=== PATIENT | female | born 1945 | race Caucasian/White ===

== ENCOUNTER 2019-08-28 00:01 | Inpatient (IN) | payer OTHER ==
[~2019-08-28] VITALS: Ht 162.6 cm; Wt 88.6 kg
[~2019-08-28 00:01] MED LIST: BUTA-91 PO; PREMARIN PO; PROVERA PO
[2019-08-28] MEDS ORDERED: SODIUM CHLORIDE 0.9% 1,000 ML IV ONE (04:45)
[2019-08-28] MEDS ORDERED: MORPHINE SULF INJ 2 MG/ML SYRINGE 1ML IV ONE (04:45)
[2019-08-28] MEDS ORDERED: ONDANSETRON HCL 4 MG/2 ML VIAL IV ONE (04:45)
[2019-08-28 04:56] LABS: Basophils # (auto) 0.1 uL; Basophils % (auto) 0.6 % (0.0-2.0); Eosinophils # (auto) 0 uL; Eosinophils % (auto) 0.1 % (0.0-7.0); Hematocrit 40.5 % (36.0-46.0); Hemoglobin 13.7 g/dL (12.2-16.2); Lymphocytes % (auto) 4.7 % (10.0-50.0); Mean Corpuscular Hemoglobin 29.8 pg (28.0-32.0); Mean Corpuscular Volume 87.8 fL (80.0-100.0); Monocytes # (auto) 2.2 uL; Monocytes % (auto) 9.8 % (0.0-12.0); Neutrophils # (auto) 18.9 uL; Neutrophils % (auto) 84.8 % (37.0-80.0); Platelet Count (auto) 366 10^3/uL (140-450); Red Blood Cells 4.61 10^6/uL (4.0-5.20); Red Cell Distribution Width 13.6 % (11.8-14.3); White Blood Cell 22.3 10^3/uL (4.4-10.8)
[2019-08-28 05:29] LABS: Calcium 8.9 mg/dL (8.5-10.1); Potassium 3.5 mmol/L (3.5-5.1)
[2019-08-28 05:32] LABS: Albumin 3.2 g/dL (3.4-5.0); Amylase 28 U/L (25-115); Lipase 66 U/L (73-393)
[2019-08-28 05:36] LABS: Bilirubin, Total 0.7 mg/dL (0.2-1.0); Total Protein 7.9 g/dL (6.4-8.2)
[2019-08-28 09:16] LABS: Urine Bacteria FEW /hpf (None Seen); Urine Blood 2+ /uL (Negative); Urine Mucus FEW (None Seen); Urine Specific Gravity 1.017 (1.001-1.035); Urine WBC 238 /hpf (0 - 5); Urine WBC Clumps PRESENT /hpf (None Seen)
[2019-08-28] MEDS ORDERED: cefTRIAXone 1GM/50ML D5W 50 ML IV ONE (11:00)
[2019-08-28] MEDS ORDERED: HYDROcodone-ACET 5/325MG TAB PO PRN (11:45)
[2019-08-28] MEDS ORDERED: SODIUM CHLORIDE 0.9% 2,000 ML IV ONE (11:45)
[2019-08-28] MEDS ORDERED: NITROGLYCERIN 0.4 MG SL TAB SL PRN (11:45)
[2019-08-28] MEDS ORDERED: MORPHINE SULF INJ 2 MG/ML SYRINGE 1ML IV PRN ×2 (11:45)
[2019-08-28] MEDS: FAMOTIDINE 20 MG TAB PO SCH (11:55)
[2019-08-28] MEDS: DOCUSATE SOD 100 MG CAP PO SCH ×2 (11:55→20:37)
[2019-08-28] MEDS: SODIUM CHLORIDE 0.9% 1,000 ML IV SCH ×3 (12:35→22:19)
[2019-08-28] MEDS ORDERED: MEDR2.5T3 (13:35)
[2019-08-28] MEDS ORDERED: FLUO20CA90 (13:35)
[2019-08-28] MEDS ORDERED: OMEP-260 (13:35)
[2019-08-28] MEDS ORDERED: ESTR0.5T3 (13:35)
[2019-08-28] MEDS: ONDANSETRON HCL 4 MG/2 ML VIAL IV PRN ×2 (14:15→20:37)
[2019-08-28 22:00] VITALS: BP 138/88
[2019-08-28] MEDS: ACETAMINOPHEN 500 MG TAB PO PRN (23:29)
[2019-08-29] MEDS: ONDANSETRON HCL 4 MG/2 ML VIAL IV PRN ×3 (03:04→20:42)
[2019-08-29 05:00] VITALS: BP 151/83
[2019-08-29 05:38] LABS: Basophils # (auto) 0.1 uL; Basophils % (auto) 0.7 % (0.0-2.0); Eosinophils # (auto) 0.2 uL; Eosinophils % (auto) 1.2 % (0.0-7.0); Hematocrit 35.8 % (36.0-46.0); Lymphocytes # (auto) 1.1 uL; Lymphocytes % (auto) 6.1 % (10.0-50.0); Mean Corpuscular Hemoglobin 29.9 pg (28.0-32.0); Mean Corpuscular Hgb Conc. 33.6 g/dL (32.0-36.0); Mean Corpuscular Volume 88.9 fL (80.0-100.0); Monocytes # (auto) 2.2 uL; Monocytes % (auto) 12.8 % (0.0-12.0); Neutrophils # (auto) 13.7 uL; Neutrophils % (auto) 79.2 % (37.0-80.0); Nucleated Red Blood Cells % 0.1 %; Platelet Count (auto) 318 10^3/uL (140-450); Red Blood Cells 4.02 10^6/uL (4.0-5.20); Red Cell Distribution Width 13.5 % (11.8-14.3); White Blood Cell 17.2 10^3/uL (4.4-10.8)
[2019-08-29 06:01] LABS: BUN/Creatinine Ratio 18.3; Calcium 8.1 mg/dL (8.5-10.1); Potassium 3.7 mmol/L (3.5-5.1)
[2019-08-29] MEDS: SODIUM CHLORIDE 0.9% 1,000 ML IV SCH ×2 (08:44→17:26)
[2019-08-29] MEDS: cefTRIAXone 1GM/50ML D5W 50 ML IV SCH (08:59)
[2019-08-29 09:00] VITALS: BP 133/73
[2019-08-29] MEDS: FAMOTIDINE 20 MG TAB PO SCH (09:54)
[2019-08-29] MEDS: DOCUSATE SOD 100 MG CAP PO SCH ×2 (09:55→20:42)
[2019-08-29 13:00] VITALS: BP 135/81
[2019-08-29 17:05] VITALS: BP 151/69
[2019-08-29] MEDS: ACETAMINOPHEN 500 MG TAB PO PRN (19:49)
[2019-08-29 22:37] VITALS: BP 157/85
[2019-08-30] MEDS: SODIUM CHLORIDE 0.9% 1,000 ML IV SCH ×2 (02:04→14:38)
[2019-08-30] MEDS: DOCUSATE SOD 100 MG CAP PO SCH (03:11)
[2019-08-30] MEDS: ONDANSETRON HCL 4 MG/2 ML VIAL IV PRN ×2 (03:11→09:07)
[2019-08-30 05:00] VITALS: BP 182/97
[2019-08-30] MEDS ORDERED: hydrALAZINE HCL 20 MG/ML VL IV PRN (05:15)
[2019-08-30 07:00] VITALS: BP 162/85
[2019-08-30 07:03] LABS: Basophils # (auto) 0.1 uL; Basophils % (auto) 0.8 % (0.0-2.0); Eosinophils # (auto) 0.3 uL; Eosinophils % (auto) 2.8 % (0.0-7.0); Hematocrit 37.9 % (36.0-46.0); Hemoglobin 12.7 g/dL (12.2-16.2); Lymphocytes # (auto) 0.7 uL; Lymphocytes % (auto) 5.4 % (10.0-50.0); Mean Corpuscular Hemoglobin 29.8 pg (28.0-32.0); Mean Corpuscular Hgb Conc. 33.6 g/dL (32.0-36.0); Mean Corpuscular Volume 88.6 fL (80.0-100.0); Monocytes # (auto) 1.2 uL; Monocytes % (auto) 9.4 % (0.0-12.0); Neutrophils # (auto) 10.1 uL; Neutrophils % (auto) 81.6 % (37.0-80.0); Platelet Count (auto) 370 10^3/uL (140-450); Red Blood Cells 4.28 10^6/uL (4.0-5.20); Red Cell Distribution Width 13.3 % (11.8-14.3); White Blood Cell 12.3 10^3/uL (4.4-10.8)
[2019-08-30 07:22] LABS: BUN/Creatinine Ratio 12.1; Calcium 8.5 mg/dL (8.5-10.1)
[2019-08-30 09:00] VITALS: BP 152/78
[2019-08-30] MEDS: cefTRIAXone 1GM/50ML D5W 50 ML IV SCH (09:02)
[2019-08-30] MEDS: FAMOTIDINE 20 MG TAB PO SCH (09:08)
[2019-08-30] MEDS ORDERED: PANTOPRAZOLE 40 MG TAB PO ONE (10:45)
[2019-08-30] MEDS ORDERED: POTASSIUM EFFERVESENT TAB 25 MEQ PO ONE (10:45)
[2019-08-30] MEDS ORDERED: POTASSIUM CHLORIDE 40 MEQ, LIDOCAINE 1% (LOCAL ANESTH.) 4 ML in SODIUM CHL 0.9% 100 ML IV ONE (10:45)
[2019-08-30 13:00] VITALS: BP 147/79
[2019-08-30] MEDS ORDERED: CIPR-173 PO (16:55)
[2019-08-30 17:00] VITALS: BP 150/88
[2019-08-30 18:02] VITALS: BP 182/97
[2019-08-31] MEDS ORDERED: PANTOPRAZOLE 40 MG/10 ML VIAL INJ IV SCH (10:00)
== END 2019-08-30 19:00 | disposition home health service (06) | DRG 872 ==
LOC: ER 00:05 → OVERFLOW 00:06 → EAST 13:28
PROVIDERS: ADMIT Nurse Practitioner Acute Care; ATTEND Internal Medicine
DX: A41.51 Sepsis due to Escherichia coli [E. coli] (principal); N10 Acute pyelonephritis; M19.90 Unspecified osteoarthritis, unspecified site; E66.9 Obesity, unspecified; R91.1 Solitary pulmonary nodule; F32.9 Major depressive disorder, single episode, unspecified; K21.9 Gastro-esophageal reflux disease without esophagitis; K44.9 Diaphragmatic hernia without obstruction or gangrene; K57.90 Diverticulosis of intestine, part unspecified, without perforation or abscess without bleeding; K76.0 Fatty (change of) liver, not elsewhere classified; B96.20 Unspecified Escherichia coli [E. coli] as the cause of diseases classified elsewhere; Z96.651 Presence of right artificial knee joint; Z90.49 Acquired absence of other specified parts of digestive tract; Z79.899 Other long term (current) drug therapy; Z68.33 Body mass index [BMI] 33.0-33.9, adult
CPT/HCPCS: 36415; 71260; 74176; 80048; 80053; 81001; 82150; 83690; 84443; 85025; 87040; 87077; 87086; 87088; 87186; 93005; 96361; 96365; 96375; G0378; J0696; J2001; J2405

== ENCOUNTER 2023-01-23 06:02 | Inpatient (IN) | payer OTHER ==
[~2023-01-23] VITALS: Ht 165.1 cm; Wt 87.6 kg
[~2023-01-23 06:02] MED LIST changes: +CIPR-173 PO; +ESTR0.5T6; +FLUO20CA90; +MEDR2.5T5; +OMEP1CAP70
[2023-01-23] MEDS ORDERED: ONDANSETRON HCL 4 MG/2 ML VIAL IV ONE (07:00)
[2023-01-23] MEDS ORDERED: SODIUM CHLORIDE 0.9% 1,000 ML IV ONE ×2 (07:00)
[2023-01-23 08:07] LABS: Basophils # (auto) 0.1 10 ^3/uL (0-0.2); Basophils % (auto) 0.6 % (0.0-2.0); Eosinophils # (auto) 0 10 ^3/uL (0-0.8); Eosinophils % (auto) 0.2 % (0.0-7.0); Hematocrit 46.2 % (36.0-46.0); Hemoglobin 15.6 g/dL (12.2-16.2); Lymphocytes # (auto) 0.6 10 ^3/uL (0.4-5.4); Lymphocytes % (auto) 4.8 % (10.0-50.0); Mean Corpuscular Hemoglobin 30.7 pg (28.0-32.0); Mean Corpuscular Hgb Conc. 33.8 g/dL (32.0-36.0); Mean Corpuscular Volume 90.9 fL (80.0-100.0); Monocytes # (auto) 0.6 10 ^3/uL (0-1.3); Monocytes % (auto) 5.4 % (0.0-12.0); Neutrophils # (auto) 10.8 10 ^3/uL (1.6-8.6); Red Blood Cells 5.09 10^6/uL (4.0-5.20); Red Cell Distribution Width 12.8 % (11.8-14.3); White Blood Cell 12.1 10^3/uL (4.4-10.8)
[2023-01-23 08:25] LABS: Albumin 4.4 g/dL (3.4-5.0); Calcium 10.1 mg/dL (8.5-10.1); Potassium 4.1 mmol/L (3.5-5.1)
[2023-01-23 08:28] LABS: BUN/Creatinine Ratio 13.5 (10.0-20.0); Bilirubin, Total 0.8 mg/dL (0.2-1.0)
[2023-01-23 09:08] LABS: Urine Bacteria NONE SEEN /hpf (None Seen); Urine Blood Negative /uL (Negative); Urine Hyaline Cast FEW /lpf (0 - 2); Urine Mucus FEW (None Seen); Urine Specific Gravity 1.009 (1.001-1.035); Urine WBC 80 /hpf (0 - 5)
[2023-01-23] MEDS ORDERED: cloNIDine HCL 0.1 MG TAB PO ONE (09:15)
[2023-01-23] MEDS ORDERED: LORazepam 0.5 MG TAB PO ONE (09:15)
[2023-01-23] MEDS ORDERED: DOCUSATE SOD 100 MG CAP PO PRN (10:30)
[2023-01-23] MEDS ORDERED: DEXTROSE (50%) 50ML SYRG IV PRN (10:30)
[2023-01-23] MEDS: SODIUM CHLORIDE 0.9% 1,000 ML IV SCH ×2 (10:30→18:50)
[2023-01-23] MEDS ORDERED: MORPHINE SULFATE INJ 2 MG/ml SYRG IV PRN (10:30)
[2023-01-23] MEDS: ACCU-CHEK COMFORT CURVE STRIP VI SCH ×3 (11:12→22:00)
[2023-01-23] MEDS: InsuLIN REG 1unit/0.01ml Soln (100units/ml) SC SCH ×3 (11:17→22:00)
[2023-01-23] MEDS: cefTRIAXone 1GM/50ML D5W 50 ML IV SCH (16:43)
[2023-01-24 04:00] VITALS: PULSE 58; RESP 16; O2SAT 98
[2023-01-24] MEDS: SODIUM CHLORIDE 0.9% 1,000 ML IV SCH ×4 (04:46→22:03)
[2023-01-24] MEDS: ONDANSETRON HCL 4 MG/2 ML VIAL IV PRN (04:46)
[2023-01-24 05:19] LABS: Basophils # (auto) 0.1 10 ^3/uL (0-0.2); Basophils % (auto) 0.7 % (0.0-2.0); Eosinophils # (auto) 0.1 10 ^3/uL (0-0.8); Eosinophils % (auto) 0.8 % (0.0-7.0); Hemoglobin 13.9 g/dL (12.2-16.2); Lymphocytes # (auto) 0.6 10 ^3/uL (0.4-5.4); Lymphocytes % (auto) 3.2 % (10.0-50.0); Mean Corpuscular Hemoglobin 30.9 pg (28.0-32.0); Mean Corpuscular Hgb Conc. 33.9 g/dL (32.0-36.0); Mean Corpuscular Volume 91.2 fL (80.0-100.0); Monocytes # (auto) 1.4 10 ^3/uL (0-1.3); Monocytes % (auto) 8.1 % (0.0-12.0); Neutrophils # (auto) 14.9 10 ^3/uL (1.6-8.6); Neutrophils % (auto) 87.2 % (37.0-80.0); Red Cell Distribution Width 13.2 % (11.8-14.3); White Blood Cell 17.1 10^3/uL (4.4-10.8)
[2023-01-24 05:20] LABS: Albumin 3.8 g/dL (3.4-5.0); Calcium 8.4 mg/dL (8.5-10.1); Potassium 3.7 mmol/L (3.5-5.1)
[2023-01-24 05:24] LABS: BUN/Creatinine Ratio 18.6 (10.0-20.0); Bilirubin, Total 0.7 mg/dL (0.2-1.0); Total Protein 7.1 g/dL (6.4-8.2)
[2023-01-24] MEDS: ACCU-CHEK COMFORT CURVE STRIP VI SCH ×4 (06:49→22:02)
[2023-01-24] MEDS: InsuLIN REG 1unit/0.01ml Soln (100units/ml) SC SCH ×4 (06:49→22:01)
[2023-01-24] MEDS: cefTRIAXone 1GM/50ML D5W 50 ML IV SCH (09:42)
[2023-01-24] MEDS: medroxyPROGESTERone ACETATE 5 MG TAB PO SCH (10:00)
[2023-01-24] MEDS: ESTRADIOL 1 MG TAB PO SCH (10:00)
[2023-01-24] MEDS: FLUoxetine HCL 20 MG CAP PO SCH (10:37)
[2023-01-24 11:27] VITALS: BP 145/97; PULSE 102; RESP 18; TEMP 98.3; O2SAT 95
[2023-01-24] MEDS ORDERED: LOSA100T58 PO (11:45)
[2023-01-24] MEDS ORDERED: LISINOPRIL 20 MG TAB PO SCH (11:45)
[2023-01-24] MEDS ORDERED: LISI20TA56 PO (11:45)
[2023-01-24] MEDS: PANTOPRAZOLE 40 MG/10 ML VIAL INJ IV SCH (12:11)
[2023-01-24] MEDS ORDERED: LOSARTAN POTASSIUM 50 MG TAB PO SCH (12:11)
[2023-01-24] MEDS: metroNIDAZOLE 500MG/100ML 100 ML IV SCH ×2 (12:21→21:56)
[2023-01-24 13:00] VITALS: BP 145/97; PULSE 102; RESP 18; TEMP 98.3; O2SAT 95
[2023-01-24] MEDS: levoFLOXacin 500MG 100 ML IV SCH (14:33)
[2023-01-24] MEDS: LOSARTAN POTASSIUM 50 MG TAB PO SCH (16:04)
[2023-01-24] MEDS ORDERED: IOHEXOL 300 MG/ML 100ML BOTTLE IJ ONE (16:44)
[2023-01-24 17:00] VITALS: BP 141/63; PULSE 86; RESP 20; TEMP 98.1; O2SAT 96
[2023-01-24 22:00] VITALS: BP 148/74; PULSE 89; RESP 18; TEMP 97.1; O2SAT 94
[2023-01-25] MEDS: hydrALAZINE HCL 20 MG/ML VL IV PRN ×2 (04:08→17:47)
[2023-01-25] MEDS: ONDANSETRON HCL 4 MG/2 ML VIAL IV PRN ×2 (04:08→08:37)
[2023-01-25] MEDS: SODIUM CHLORIDE 0.9% 1,000 ML IV SCH ×4 (04:35→23:08)
[2023-01-25 05:00] VITALS: BP 182/99; PULSE 99; RESP 18; TEMP 98.3; O2SAT 97
[2023-01-25] MEDS: ACCU-CHEK COMFORT CURVE STRIP VI SCH ×4 (06:08→22:31)
[2023-01-25] MEDS: metroNIDAZOLE 500MG/100ML 100 ML IV SCH ×3 (06:08→22:31)
[2023-01-25] MEDS: InsuLIN REG 1unit/0.01ml Soln (100units/ml) SC SCH ×4 (06:09→22:00)
[2023-01-25 08:00] VITALS: BP 127/85; PULSE 109; RESP 18; TEMP 97.9; O2SAT 97
[2023-01-25] MEDS: medroxyPROGESTERone ACETATE 5 MG TAB PO SCH (10:00)
[2023-01-25] MEDS: ESTRADIOL 1 MG TAB PO SCH (10:00)
[2023-01-25] MEDS: LOSARTAN POTASSIUM 50 MG TAB PO SCH (11:14)
[2023-01-25] MEDS: levoFLOXacin 500MG 100 ML IV SCH (11:16)
[2023-01-25] MEDS: PANTOPRAZOLE 40 MG/10 ML VIAL INJ IV SCH (11:16)
[2023-01-25] MEDS: FLUoxetine HCL 20 MG CAP PO SCH (11:17)
[2023-01-25 13:00] VITALS: BP 152/84; PULSE 99; RESP 18; TEMP 98.3; O2SAT 95
[2023-01-25 15:00] VITALS: BP 159/88; PULSE 93; RESP 18; TEMP 97.9; O2SAT 95
[2023-01-25 16:19] LABS: Basophils # (auto) 0.1 10 ^3/uL (0-0.2); Basophils % (auto) 0.7 % (0.0-2.0); Eosinophils # (auto) 0.1 10 ^3/uL (0-0.8); Eosinophils % (auto) 0.8 % (0.0-7.0); Hematocrit 40.1 % (36.0-46.0); Hemoglobin 13.6 g/dL (12.2-16.2); Lymphocytes # (auto) 0.9 10 ^3/uL (0.4-5.4); Lymphocytes % (auto) 7.9 % (10.0-50.0); Mean Corpuscular Hemoglobin 31.1 pg (28.0-32.0); Mean Corpuscular Volume 91.3 fL (80.0-100.0); Monocytes # (auto) 1.2 10 ^3/uL (0-1.3); Monocytes % (auto) 10.6 % (0.0-12.0); Neutrophils # (auto) 8.8 10 ^3/uL (1.6-8.6); Nucleated Red Blood Cells % 0.2 %; Red Blood Cells 4.39 10^6/uL (4.0-5.20); Red Cell Distribution Width 13.3 % (11.8-14.3); White Blood Cell 10.9 10^3/uL (4.4-10.8)
[2023-01-25 16:39] LABS: BUN/Creatinine Ratio 10.2 (10.0-20.0); Calcium 8.8 mg/dL (8.5-10.1)
[2023-01-25 16:41] LABS: Potassium 2.9 mmol/L (3.5-5.1)
[2023-01-25 22:00] VITALS: BP 140/84; PULSE 105; RESP 16; TEMP 98; O2SAT 97
[2023-01-25] MEDS: TEMAZEPAM 15 MG CAP PO PRN (23:12)
[2023-01-26] VITALS (7 sets, daily range): BP systolic 146–175; BP diastolic 73–81; PULSE 68–94; RESP 17–18; TEMP 36.8; O2SAT 94–99
[2023-01-26] MEDS: SODIUM CHLORIDE 0.9% 1,000 ML IV SCH ×3 (06:21→21:50)
[2023-01-26] MEDS: metroNIDAZOLE 500MG/100ML 100 ML IV SCH ×2 (06:21→14:22)
[2023-01-26] MEDS: ACCU-CHEK COMFORT CURVE STRIP VI SCH ×4 (06:25→22:00)
[2023-01-26] MEDS: InsuLIN REG 1unit/0.01ml Soln (100units/ml) SC SCH ×4 (06:27→22:00)
[2023-01-26] MEDS: LOSARTAN POTASSIUM 50 MG TAB PO SCH (08:52)
[2023-01-26] MEDS: medroxyPROGESTERone ACETATE 5 MG TAB PO SCH (08:53)
[2023-01-26] MEDS: FLUoxetine HCL 20 MG CAP PO SCH (08:53)
[2023-01-26] MEDS: ESTRADIOL 1 MG TAB PO SCH (08:53)
[2023-01-26] MEDS: PANTOPRAZOLE 40 MG/10 ML VIAL INJ IV SCH (08:53)
[2023-01-26] MEDS: levoFLOXacin 500MG 100 ML IV SCH (08:53)
[2023-01-26] MEDS ORDERED: POTASSIUM CHL 20 Meq TABLET PO ONE (11:30)
[2023-01-26] MEDS ORDERED: POTASSIUM CHL 20MEQ/100ML 100 ML IV SCH ×2 (11:30→17:00)
[2023-01-26] MEDS ORDERED: CIPR-173 PO (16:13)
[2023-01-26] MEDS ORDERED: AMLO1TAB22 PO (16:13)
[2023-01-26] MEDS ORDERED: amLODIPine BESYLATE 5 MG TAB PO SCH (16:15)
[2023-01-26] MEDS: TEMAZEPAM 15 MG CAP PO PRN (23:12)
[2023-01-27] MEDS: hydrALAZINE HCL 20 MG/ML VL IV PRN (02:37)
[2023-01-27 04:51] VITALS: BP 164/73; PULSE 89; RESP 17; TEMP 98.3; O2SAT 96
[2023-01-27] MEDS: InsuLIN REG 1unit/0.01ml Soln (100units/ml) SC SCH (06:00)
[2023-01-27] MEDS: SODIUM CHLORIDE 0.9% 1,000 ML IV SCH ×3 (06:25→07:32)
[2023-01-27] MEDS: ACCU-CHEK COMFORT CURVE STRIP VI SCH (06:25)
[2023-01-27] MEDS: metroNIDAZOLE 500MG/100ML 100 ML IV SCH ×2 (06:35)
[2023-01-27 06:57] VITALS: BP 125/89; PULSE 88; RESP 17; TEMP 98.5; O2SAT 98
[2023-01-27 08:00] VITALS: BP 145/79; PULSE 82; RESP 18; TEMP 97.9; O2SAT 98
[2023-01-27] MEDS ORDERED: PANTOPRAZOLE 40 MG TAB PO SCH (10:00)
== END 2023-01-27 08:45 | disposition home or self-care (01) | DRG 436 ==
LOC: ER 06:02 → OVERFLOW 10:32 → WEST WING 01-24 11:07
PROVIDERS: ADMIT Internal Medicine; ATTEND Internal Medicine
DX: C25.0 Malignant neoplasm of head of pancreas (principal); E87.1 Hypo-osmolality and hyponatremia; N39.0 Urinary tract infection, site not specified; E86.0 Dehydration; K86.9 Disease of pancreas, unspecified; K21.9 Gastro-esophageal reflux disease without esophagitis; I11.9 Hypertensive heart disease without heart failure; F32.A Depression, unspecified; Z79.899 Other long term (current) drug therapy; Z87.891 Personal history of nicotine dependence
CPT/HCPCS: 36415; 70450; 71045; 71260; 74176; 74177; 80048; 80053; 81001; 82378; 82962; 83036; 83690; 84132; 84484; 85025; 86301; 87040; 87086; 87088; 87186; 96361; 96374; C9113; G0378; J0696; J1815; J1956; J2405; J3480; J3490

== ENCOUNTER 2023-02-28 20:45 | Inpatient (IN) | payer OTHER ==
[~2023-02-28] VITALS: Ht 165.1 cm; Wt 74.0 kg
[~2023-02-28 20:45] MED LIST changes: +AMLO1TAB22 PO; +LOSA100T58 PO
[2023-02-28 22:51] LABS: Basophils # (auto) 0.1 10 ^3/uL (0-0.2); Basophils % (auto) 0.6 % (0.0-2.0); Eosinophils # (auto) 0 10 ^3/uL (0-0.8); Eosinophils % (auto) 0.1 % (0.0-7.0); Hematocrit 43.4 % (36.0-46.0); Lymphocytes # (auto) 0.4 10 ^3/uL (0.4-5.4); Lymphocytes % (auto) 2.5 % (10.0-50.0); Mean Corpuscular Hemoglobin 31.2 pg (28.0-32.0); Mean Corpuscular Hgb Conc. 34.6 g/dL (32.0-36.0); Mean Corpuscular Volume 90.2 fL (80.0-100.0); Monocytes # (auto) 1.2 10 ^3/uL (0-1.3); Monocytes % (auto) 6.9 % (0.0-12.0); Neutrophils # (auto) 15.3 10 ^3/uL (1.6-8.6); Neutrophils % (auto) 89.9 % (37.0-80.0); Red Blood Cells 4.81 10^6/uL (4.0-5.20); White Blood Cell 17.1 10^3/uL (4.4-10.8)
[2023-02-28 22:52] LABS: Chloride 95 mmol/L (98-107); Potassium 3.4 mmol/L (3.5-5.1); Sodium 130 mmol/L (136-145)
[2023-02-28 22:53] LABS: Anion Gap 11.4 (5-15); Carbon Dioxide 23.6 mmol/L (20-30)
[2023-02-28 22:54] LABS: Calcium 9.6 mg/dL (8.7-10.4)
[2023-02-28 22:58] LABS: BUN/Creatinine Ratio 10.9 (10.0-20.0); Blood Urea Nitrogen 7 mg/dL (9-23); Glucose 168 mg/dL (74-106)
[2023-03-01] MEDS ORDERED: PIPERACILLIN-TAZOB 3.375GM 100 ML IV ONE (00:15)
[2023-03-01] MEDS ORDERED: ONDANSETRON HCL 4 MG/2 ML VIAL IV ONE ×2 (00:15→05:30)
[2023-03-01] MEDS ORDERED: LACTATED RINGER'S 2,200 ML IV ONE (00:15)
[2023-03-01] MEDS ORDERED: metroNIDAZOLE 500MG/100ML 100 ML IV ONE (00:15)
[2023-03-01] MEDS ORDERED: HYDROmorphone HCL 2 MG/ML VL/or syr IV ONE (00:15)
[2023-03-01] MEDS ORDERED: IOHEXOL 300 MG/ML 100ML BOTTLE IJ ONE (00:38)
[2023-03-01 03:30] VITALS: PULSE 98; RESP 18; O2SAT 94
[2023-03-01 03:36] LABS: Urine Bacteria NONE SEEN /hpf (None Seen); Urine Blood Negative /uL (Negative); Urine Clarity Clear (Clear); Urine Color Straw (Yellow); Urine Protein, UAD Negative (Negative); Urine Specific Gravity 1.042 (1.001-1.035); Urine Urobilinogen Normal (Negative); Urine WBC 1 /hpf (0 - 5)
[2023-03-01 04:41] LABS: Alanine Aminotransferase 12 U/L (7-40); Albumin 4.3 g/dL (3.2-4.8); Alkaline Phosphatase 102 U/L (46-116); Anion Gap 7.6 (5-15); Aspartate Aminotransferase 9 U/L (13-40); BUN/Creatinine Ratio 11.1 (10.0-20.0); Bilirubin, Total 0.6 mg/dL (0.2-1.0); Blood Urea Nitrogen 6 mg/dL (9-23); Calcium 9.1 mg/dL (8.7-10.4); Carbon Dioxide 25.4 mmol/L (20-30); Chloride 98 mmol/L (98-107); Glucose 142 mg/dL (74-106); Potassium 3.5 mmol/L (3.5-5.1); Sodium 131 mmol/L (136-145); Total Protein 6.9 g/dL (5.7-8.2)
[2023-03-01] MEDS ORDERED: NITROGLYCERIN 0.4 MG SL TAB SL PRN (06:15)
[2023-03-01] MEDS ORDERED: hydrALAZINE HCL 20 MG/ML VL IV PRN (06:15)
[2023-03-01] MEDS ORDERED: SODIUM CHLORIDE 0.9% 1,000 ML IV SCH (06:15)
[2023-03-01] MEDS ORDERED: ONDANSETRON HCL 4 MG/2 ML VIAL IV PRN (06:15)
[2023-03-01] MEDS ORDERED: MORPHINE SULFATE INJ 2 MG/ml SYRG IV PRN ×2 (06:15)
[2023-03-01] MEDS ORDERED: ACETAMINOPHEN 325 MG TAB PO PRN (06:15)
[2023-03-01] MEDS ORDERED: DOCUSATE SOD 100 MG CAP PO PRN (06:15)
[2023-03-01] MEDS ORDERED: HYDROcodone-ACET 5/325MG TAB PO PRN (06:15)
[2023-03-01] MEDS ORDERED: cefTRIAXone 1GM/50ML D5W 50 ML IV SCH (07:00)
[2023-03-01] MEDS ORDERED: POTASSIUM CHL 20 Meq TABLET PO ONE (07:00)
[2023-03-01 07:20] VITALS: PULSE 93; RESP 15; O2SAT 95
[2023-03-01 07:29] LABS: Basophils # (auto) 0.1 10 ^3/uL (0-0.2); Basophils % (auto) 0.5 % (0.0-2.0); Eosinophils # (auto) 0.1 10 ^3/uL (0-0.8); Eosinophils % (auto) 0.7 % (0.0-7.0); Hematocrit 40.7 % (36.0-46.0); Hemoglobin 13.9 g/dL (12.2-16.2); Lymphocytes # (auto) 0.8 10 ^3/uL (0.4-5.4); Mean Corpuscular Hgb Conc. 34.2 g/dL (32.0-36.0); Mean Corpuscular Volume 90.6 fL (80.0-100.0); Monocytes # (auto) 1.5 10 ^3/uL (0-1.3); Monocytes % (auto) 10.8 % (0.0-12.0); Neutrophils # (auto) 11.6 10 ^3/uL (1.6-8.6); Red Blood Cells 4.49 10^6/uL (4.0-5.20); Red Cell Distribution Width 13.1 % (11.8-14.3); White Blood Cell 14.2 10^3/uL (4.4-10.8)
[2023-03-01 08:00] LABS: Alanine Aminotransferase 13 U/L (7-40); Alkaline Phosphatase 97 U/L (46-116); Anion Gap 8.3 (5-15); Aspartate Aminotransferase 10 U/L (13-40); BUN/Creatinine Ratio 9.7 (10.0-20.0); Blood Urea Nitrogen 6 mg/dL (9-23); Calcium 9.1 mg/dL (8.5-10.1); Carbon Dioxide 26.7 mmol/L (20-30); Chloride 99 mmol/L (98-107); Glucose 165 mg/dL (74-106); Potassium 3.8 mmol/L (3.5-5.1); Sodium 134 mmol/L (136-145)
[2023-03-01] MEDS ORDERED: metroNIDAZOLE 500MG/100ML 100 ML IV SCH (08:00)
[2023-03-01 08:01] LABS: Albumin 4.2 g/dL (3.2-4.8); Bilirubin, Total 0.6 mg/dL (0.2-1.0); Total Protein 6.7 g/dL (5.7-8.2)
[2023-03-01] MEDS ORDERED: FAMOTIDINE (10MG/ML) 2ML VL IV SCH (10:00)
[2023-03-01] MEDS ORDERED: PANTOPRAZOLE 40 MG/10 ML VIAL INJ IV SCH (10:15)
[2023-03-01 11:20] VITALS: BP 138/83; PULSE 91; RESP 16; TEMP 97.6; O2SAT 95
== END 2023-03-01 15:53 | disposition home or self-care (01) | DRG 436 ==
LOC: ER 20:45 → OVERFLOW 03-01 06:16
PROVIDERS: ADMIT Nurse Practitioner Family; ATTEND Nurse Practitioner Family
DX: C25.9 Malignant neoplasm of pancreas, unspecified (principal); C78.7 Secondary malignant neoplasm of liver and intrahepatic bile duct; E87.1 Hypo-osmolality and hyponatremia; K52.9 Noninfective gastroenteritis and colitis, unspecified; E86.0 Dehydration; E87.6 Hypokalemia; I10 Essential (primary) hypertension; R73.9 Hyperglycemia, unspecified; K21.9 Gastro-esophageal reflux disease without esophagitis; F32.9 Major depressive disorder, single episode, unspecified; F41.9 Anxiety disorder, unspecified; Z90.49 Acquired absence of other specified parts of digestive tract; N13.9 Obstructive and reflux uropathy, unspecified
CPT/HCPCS: 36415; 74177; 76705; 80048; 80053; 81001; 83605; 85025; 87040; C9113; G0378; J0696; J2405; J2543; J3490

== ENCOUNTER 2023-06-13 19:44 | Inpatient (IN) | payer OTHER ==
[~2023-06-13] VITALS: Ht 165.1 cm; Wt 79.6 kg
[~2023-06-13 19:44] MED LIST changes: -CIPR-173 PO
[2023-06-13 20:35] LABS: Basophils # (auto) 0.2 10 ^3/uL (0-0.2); Eosinophils # (auto) 0.3 10 ^3/uL (0-0.8); Eosinophils % (auto) 1.7 % (0.0-7.0); Hematocrit 40.7 % (36.0-46.0); Hemoglobin 13.9 g/dL (12.2-16.2); Lymphocytes % (auto) 6.2 % (10.0-50.0); Mean Corpuscular Hemoglobin 31.1 pg (28.0-32.0); Mean Corpuscular Hgb Conc. 34.3 g/dL (32.0-36.0); Mean Corpuscular Volume 90.8 fL (80.0-100.0); Monocytes % (auto) 6.4 % (0.0-12.0); Neutrophils # (auto) 13.7 10 ^3/uL (1.6-8.6); Neutrophils % (auto) 84.7 % (37.0-80.0); Red Blood Cells 4.48 10^6/uL (4.0-5.20); Red Cell Distribution Width 13.3 % (11.8-14.3); White Blood Cell 16.1 10^3/uL (4.4-10.8)
[2023-06-13 20:51] LABS: INR 1.13 (0.9-1.15); Partial Thromboplastin Time 24.9 SEC (24.5-34.5); Prothrombin Time 11.8 sec (9.3-11.8)
[2023-06-13 20:55] LABS: Alanine Aminotransferase 21 U/L (7-40); Albumin 4.5 g/dL (3.2-4.8); Alkaline Phosphatase 139 U/L (46-116); Anion Gap 12 (5-15); Aspartate Aminotransferase 18 U/L (13-40); BUN/Creatinine Ratio 15.8 (10.0-20.0); Bilirubin, Total 0.6 mg/dL (0.2-1.0); Blood Urea Nitrogen 12 mg/dL (9-23); Calcium 9.3 mg/dL (8.5-10.1); Carbon Dioxide 20 mmol/L (20-30); Chloride 102 mmol/L (98-107); Potassium 3.8 mmol/L (3.5-5.1); Sodium 134 mmol/L (136-145); Total Protein 6.9 g/dL (5.7-8.2)
[2023-06-13 21:05] LABS: Glucose 404 mg/dL (74-106)
[2023-06-13] MEDS ORDERED: LORazepam 2MG/ML-1ML VIAL IV ONE (21:45)
[2023-06-13] MEDS ORDERED: PANTOPRAZOLE 40mg/50ML NS AE 50 ML IV ONE (21:45)
[2023-06-13] MEDS ORDERED: SODIUM CHLORIDE 0.9% 2,000 ML IV ONE (21:45)
[2023-06-13] MEDS ORDERED: PANTOPRAZOLE 80 MG in SODIUM CHL 0.9% 100 ML IV ONE (21:45)
[2023-06-13] MEDS ORDERED: ONDANSETRON HCL 4 MG/2 ML VIAL IV ONE (21:45)
[2023-06-13 22:20] VITALS: RESP 18; O2SAT 98
[2023-06-13] MEDS ORDERED: PANTOPRAZOLE 40 MG/10 ML VIAL INJ IV ONE (22:26)
[2023-06-13 22:39] LABS: Magnesium 1.7 mg/dL (1.6-2.6)
[2023-06-14] MEDS ORDERED: IOHEXOL 300 MG/ML 100ML BOTTLE IJ ONE (01:19)
[2023-06-14] MEDS ORDERED: ONDANSETRON HCL 4 MG/2 ML VIAL IV ONE (02:30)
[2023-06-14 03:28] LABS: Urine Bacteria FEW /hpf (None Seen); Urine Blood 1+ /uL (Negative); Urine Clarity Clear (Clear); Urine Color Colorless (Yellow); Urine Protein, UAD Negative (Negative); Urine Specific Gravity 1.044 (1.001-1.035); Urine Urobilinogen Normal (Negative); Urine WBC 1 /hpf (0 - 5); Urine pH 6.5 (5.0-8.0)
[2023-06-14] MEDS ORDERED: METOCLOPRAMIDE HCL 5MG/ml INJ 2ml VIAL IV ONE (04:15)
[2023-06-14] MEDS ORDERED: LORazepam 2MG/ML-1ML VIAL IV ONE (04:15)
[2023-06-14] MEDS ORDERED: LORazepam 0.5 MG TAB PO ONE (04:45)
[2023-06-14 07:20] VITALS: PULSE 112; RESP 21; O2SAT 95
[2023-06-14] MEDS ORDERED: ZOFR4T PO (10:45)
[2023-06-14] MEDS ORDERED: OMEP-434 PO ×2 (10:45)
[2023-06-14 15:24] LABS: Basophils # (auto) 0.1 10 ^3/uL (0-0.2); Basophils % (auto) 0.6 % (0.0-2.0); Eosinophils # (auto) 0.2 10 ^3/uL (0-0.8); Eosinophils % (auto) 1.4 % (0.0-7.0); Hematocrit 33.4 % (36.0-46.0); Hemoglobin 11.3 g/dL (12.2-16.2); Lymphocytes # (auto) 0.9 10 ^3/uL (0.4-5.4); Lymphocytes % (auto) 6.8 % (10.0-50.0); Mean Corpuscular Hemoglobin 30.5 pg (28.0-32.0); Mean Corpuscular Hgb Conc. 33.8 g/dL (32.0-36.0); Mean Corpuscular Volume 90.2 fL (80.0-100.0); Monocytes # (auto) 0.9 10 ^3/uL (0-1.3); Monocytes % (auto) 7.1 % (0.0-12.0); Neutrophils # (auto) 11.1 10 ^3/uL (1.6-8.6); Neutrophils % (auto) 84.1 % (37.0-80.0); Red Blood Cells 3.71 10^6/uL (4.0-5.20); Red Cell Distribution Width 12.9 % (11.8-14.3); White Blood Cell 13.2 10^3/uL (4.4-10.8)
[2023-06-14 15:38] LABS: Chloride 106 mmol/L (98-107); Potassium 3.7 mmol/L (3.5-5.1); Sodium 137 mmol/L (136-145)
[2023-06-14 15:40] LABS: Anion Gap 7 (5-15); Calcium 8.6 mg/dL (8.7-10.4); Carbon Dioxide 24 mmol/L (20-30)
[2023-06-14 15:45] LABS: BUN/Creatinine Ratio 20.6 (10.0-20.0); Blood Urea Nitrogen 14 mg/dL (9-23); Glucose 314 mg/dL (74-106)
[2023-06-14] MEDS ORDERED: DEXTROSE (50%) 50ML SYRG IV PRN (16:15)
[2023-06-14] MEDS ORDERED: ONDANSETRON HCL 4 MG/2 ML VIAL IV PRN (16:15)
[2023-06-14] MEDS ORDERED: PANTOPRAZOLE 40mg/50ML NS AE 50 ML IV ONE (16:15)
[2023-06-14] MEDS ORDERED: ACETAMINOPHEN 325 MG TAB PO PRN (16:15)
[2023-06-14] MEDS ORDERED: PANTOPRAZOLE 80 MG in SODIUM CHL 0.9% 100 ML IV ONE (16:15)
[2023-06-14] MEDS: SODIUM CHLORIDE 0.9% 1,000 ML IV SCH (17:09)
[2023-06-14] MEDS: InsuLIN REG 1unit/0.01ml Soln (100units/ml) SC SCH ×2 (17:23→22:32)
[2023-06-14] MEDS: ACCU-CHEK COMFORT CURVE STRIP VI SCH ×2 (17:24→22:30)
[2023-06-14 18:40] LABS: Basophils # (auto) 0.1 10 ^3/uL (0-0.2); Basophils % (auto) 0.6 % (0.0-2.0); Eosinophils # (auto) 0.3 10 ^3/uL (0-0.8); Eosinophils % (auto) 2.4 % (0.0-7.0); Hematocrit 33.6 % (36.0-46.0); Hemoglobin 11.3 g/dL (12.2-16.2); Lymphocytes # (auto) 1.1 10 ^3/uL (0.4-5.4); Lymphocytes % (auto) 8.4 % (10.0-50.0); Mean Corpuscular Hemoglobin 30.8 pg (28.0-32.0); Mean Corpuscular Hgb Conc. 33.7 g/dL (32.0-36.0); Mean Corpuscular Volume 91.6 fL (80.0-100.0); Monocytes % (auto) 7.7 % (0.0-12.0); Neutrophils # (auto) 10.4 10 ^3/uL (1.6-8.6); Neutrophils % (auto) 80.9 % (37.0-80.0); Red Blood Cells 3.66 10^6/uL (4.0-5.20); White Blood Cell 12.8 10^3/uL (4.4-10.8)
[2023-06-14 19:30] VITALS: PULSE 109; RESP 20; O2SAT 96
[2023-06-14 23:11] VITALS: BP 129/70; PULSE 94; RESP 18; TEMP 98.6; O2SAT 96
[2023-06-14 23:29] VITALS: BP 129/70; PULSE 98; RESP 16; TEMP 98.6; O2SAT 96
[2023-06-15] VITALS (9 sets, daily range): BP systolic 119–132; BP diastolic 66–80; PULSE 68–110; RESP 14–18; TEMP 97.6–98.5; O2SAT 93–99
[2023-06-15] MEDS: SODIUM CHLORIDE 0.9% 1,000 ML IV SCH ×2 (05:27→18:55)
[2023-06-15] MEDS: ACCU-CHEK COMFORT CURVE STRIP VI SCH ×4 (05:55→22:00)
[2023-06-15] MEDS: InsuLIN REG 1unit/0.01ml Soln (100units/ml) SC SCH ×4 (05:55→21:39)
[2023-06-15 06:56] LABS: Basophils # (auto) 0.1 10 ^3/uL (0-0.2); Eosinophils # (auto) 0.6 10 ^3/uL (0-0.8); Eosinophils % (auto) 5.5 % (0.0-7.0); Hematocrit 30.7 % (36.0-46.0); Hemoglobin 10.6 g/dL (12.2-16.2); Lymphocytes # (auto) 1.3 10 ^3/uL (0.4-5.4); Lymphocytes % (auto) 12.6 % (10.0-50.0); Mean Corpuscular Hemoglobin 31.3 pg (28.0-32.0); Mean Corpuscular Hgb Conc. 34.4 g/dL (32.0-36.0); Monocytes % (auto) 9.9 % (0.0-12.0); Neutrophils # (auto) 7.4 10 ^3/uL (1.6-8.6); Red Blood Cells 3.37 10^6/uL (4.0-5.20); Red Cell Distribution Width 13.1 % (11.8-14.3); White Blood Cell 10.5 10^3/uL (4.4-10.8)
[2023-06-15] MEDS ORDERED: PROPOFOL 10 MG/ML 20 ML IV ONE ×2 (11:01→11:14)
[2023-06-15] MEDS ORDERED: LIDOCAINE 2% (LOCAL ANESTH.) PF 5ml SDV ONE (11:01)
[2023-06-15] MEDS: PANTOPRAZOLE 40 MG/10 ML VIAL INJ IV SCH ×2 (13:07→21:35)
[2023-06-16] VITALS (7 sets, daily range): BP systolic 130–166; BP diastolic 68–80; PULSE 76–92; RESP 16–18; TEMP 98.2–98.5; O2SAT 90–97
[2023-06-16] MEDS: InsuLIN REG 1unit/0.01ml Soln (100units/ml) SC SCH ×2 (07:07→13:31)
[2023-06-16] MEDS: ACCU-CHEK COMFORT CURVE STRIP VI SCH ×2 (07:08→12:53)
[2023-06-16] MEDS: SODIUM CHLORIDE 0.9% 1,000 ML IV SCH (07:28)
[2023-06-16] MEDS: PANTOPRAZOLE 40 MG/10 ML VIAL INJ IV SCH (10:08)
[2023-06-16] MEDS ORDERED: PANT40T PO (12:52)
[2023-06-16] MEDS ORDERED: SUCR1SUS26 PO (12:52)
== END 2023-06-16 17:05 | disposition home health service (06) | DRG 378 ==
LOC: ER 19:44 → EDBD 19:44 → TELE 06-14 16:04 → TELE-EAST 06-14 22:40
PROVIDERS: ADMIT Internal Medicine; ATTEND Internal Medicine
PROC: 0DB68ZX Excision of Stomach, Via Natural or Artificial Opening Endoscopic, Diagnostic (ICD-10-PCS; principal; 2023-06-15 11:06)
DX: K25.4 Chronic or unspecified gastric ulcer with hemorrhage (principal); C78.7 Secondary malignant neoplasm of liver and intrahepatic bile duct; D62 Acute posthemorrhagic anemia; K57.31 Diverticulosis of large intestine without perforation or abscess with bleeding; K21.9 Gastro-esophageal reflux disease without esophagitis; I10 Essential (primary) hypertension; F32.A Depression, unspecified; K44.9 Diaphragmatic hernia without obstruction or gangrene; Z85.07 Personal history of malignant neoplasm of pancreas; Z90.49 Acquired absence of other specified parts of digestive tract
CPT/HCPCS: 36415; 74177; 80048; 80053; 81001; 82270; 82962; 83605; 83690; 83735; 83880; 84484; 85025; 85610; 85730; 86850; 86900; 86901; 87086; 93005; 96365; 96375; 99291; C9113; G0378; J1815; J2001; J2405; J2704